=== PATIENT | male | born 1995 | race Caucasian/White ===

== ENCOUNTER 2020-12-13 17:14 | Emergency (ER) | payer SELFPAY ==
[2020-12-13 17:16] VITALS: BP 112/71; PULSE 66; RESP 18; TEMP 37.6; O2SAT 100; BMI 21.9
--- NOTE | 2020-12-13 18:32 | HMH.EDUTC ---
[facility] [place] Disposition Clinical Impression: Bilateral otitis media Qualifiers: Otitis media type: suppurative Chronicity: acute Recurrence: non-recurrent Spontaneous tympanic membrane rupture: without spontaneous rupture Qualified Code(s): H66.003 - Acute suppurative otitis media without spontaneous rupture of ear drum, bilateral Disposition: Home, Self-Care Condition on Discharge: Good Instructions: DI for Otitis Media (Middle Ear Infection)-Child Additional Instructions: You have been tested for COVID19. Please isolate as if you are positive until test results received. Prescriptions: Amoxicillin [Amoxicillin 875MG Tab] 875 mg PO Q12H #20 tab Transmission Status: Pending to [facility] predniSONE [Prednisone 20mg Tab] 20 mg PO BID 5 Days #10 tab Transmission Status: Pending to [facility] Referrals: Provider,Referral, MD [Primary Care Provider] - Time of Disposition: 19:15 Medical Decision Making - Saurav Inquiry Pt receiving controlled substance: No Vital Signs: 12/13/20 17:16 Temperature 99.6 F Temperature Source Oral Pulse Rate [Left Radial] 66 Respiratory Rate 18 Blood Pressure [Right Arm] 112/71 Blood Pressure Mean [Right Arm] 84 02 Sat by Pulse Oximetry 100 Oxygen Delivery Method Room Air - Lab Data Lab Results 12/13/20 18:37: Strep Scn Rapid Clinic Negative Orders (Tests/Meds): ORDERS Category Date Time Status Covid-19 Nasal PCR ([facility]) Routine Lab 12/13/20 18:30 Received Strep Screen Confirmation Stat Micro 12/13/20 18:[address] [facility] HPI - General Stated complaint: congestion,sore throat Time Seen by Provider: 12/13/20 18:32 - History of Present Illness Provider Complaint: Congestion, sore throat, bilateral ear pain X 3 days. No fever. is also ill. Onset (ago): day(s) (3) Relieving factors: none Exacerbating factors: none Associated symptoms: denies other symptoms Treatments prior to arrival: none - Related Data Previous Rx's Medication Instructions Recorded Amoxicillin [Amoxicillin 875MG 875 mg PO Q12H #20 tab 12/13/20 Tab] predniSONE [Prednisone 20mg 20 mg PO BID 5 Days #10 tab 12/13/20 Tab] Allergies Allergy/AdvReac Type Severity Reaction Status Date / Time No Known Allergies Allergy Unverified 04/26/17 14:13 [facility] History - Hepatitis A Screen Attestation statement:: This patient has been screened for Hepatitis A risk factors. I have reviewed the patient's past medical history: Yes ROS Obtained: Yes All systems reviewed & no additional complaints - Constitutional Constitutional: Reports body ache, Reports chills, Reports night sweats - ENT Ears, Nose, Mouth, and Throat: Reports otalgia, Reports sore throat Physical Exam - General General appearance: alert, in no apparent distress - Head Head exam: normocephalic - Eye Eye exam: Present: PERRL - ENT ENT exam: Present: normal oropharynx - Expanded ENT Exam TM/Canal exam: Bilateral TM: erythema, bulging Nose exam: Present: sinus tenderness Throat exam: Present: normal inspection - Neck Neck exam: Present: normal inspection - Respiratory Respiratory exam: Present: normal lung sounds bilaterally - Cardiovascular Cardiovascular exam: Present: regular rate, normal rhythm - Neurological Exam Neurological exam: Present: alert, oriented X3 - Psychiatric Psychiatric exam: Present: normal affect, normal mood - Skin Skin exam: Present: warm, dry
[2020-12-13 18:38] LABS: UTC Strep Screen (Rapid) Negative (Negative)
[2020-12-13 19:25] VITALS: BP 112/71; PULSE 66; RESP 18; TEMP 37.6; O2SAT 100
== END 2020-12-13 19:26 | disposition home or self-care (01) ==
PROVIDERS: Emergency Provider Physician Assistant
DX: H66.003 Acute suppurative otitis media without spontaneous rupture of ear drum, bilateral (principal); Z20.822 Contact with and (suspected) exposure to COVID-19
CPT/HCPCS: 87880; 99202; G0463; U0003

== ENCOUNTER 2023-08-25 02:03 | Emergency (ER) | payer BC, SELFPAY ==
[2023-08-25] VITALS (12 sets, daily range): BP systolic 136–185; BP diastolic 82–125; PULSE 91–130; RESP 18–24; TEMP 36.9–37; O2SAT 97–100; BMI 28.5
--- NOTE | 2023-08-25 02:05 | XR_ITS ---
PROCEDURE INFORMATION: Exam: XR Right Ankle Exam date and time: 08/25/2023 2:11 AM Age: 28 years old Clinical indication: Pain; Ankle; Right; Additional info: Ankle deformity, proximal tf pain TECHNIQUE: Imaging protocol: Radiologic exam of the right ankle. Views: 3 or more views. COMPARISON: No relevant prior studies available. FINDINGS: Bones/joints: Comminuted, displaced fracture distal fibular metadiaphysis. Comminuted, displaced intra-articular fracture distal tibia. Subluxation or dislocation of tibiotalar joint. Small joint effusion. Soft tissues: Soft tissue swelling. IMPRESSION: Distal tibial and fibular fractures.
--- NOTE | 2023-08-25 02:05 | XR_ITS ---
PROCEDURE INFORMATION: Exam: XR Right Foot Exam date and time: 08/25/2023 2:14 AM Age: 28 years old Clinical indication: Pain; Foot; Right; Additional info: Ankle deformity, proximal tf pain TECHNIQUE: Imaging protocol: Radiologic exam of the right foot. Views: 3 or more views. COMPARISON: No relevant prior studies available. FINDINGS: Bones/joints: Comminuted, displaced fracture distal fibular metadiaphysis. Comminuted, displaced intra-articular fracture distal tibia. Subluxation or dislocation of tibiotalar joint. Small joint effusion. Soft tissues: Soft tissue swelling. IMPRESSION: Distal tibial and fibular fractures.
--- NOTE | 2023-08-25 02:05 | XR_ITS ---
PROCEDURE INFORMATION: Exam: XR Right Tibia and Fibula Exam date and time: 08/25/2023 2:10 AM Age: 28 years old Clinical indication: Pain; Lower leg; Right; Additional info: Ankle deformity, proximal tf pain TECHNIQUE: Imaging protocol: Radiologic exam of the right tibia and fibula. Views: 2 views. COMPARISON: No relevant prior studies available. FINDINGS: Bones/joints: Nondisplaced fracture proximal fibular metadiaphysis. Comminuted, displaced fracture distal fibular metadiaphysis. Comminuted, displaced intra-articular fracture distal tibia. Subluxation or dislocation of tibiotalar joint. Soft tissues: Soft tissue swelling about ankle. IMPRESSION: Tibial and fibular fractures.
--- NOTE | 2023-08-25 02:05 | XR_ITS ---
PROCEDURE INFORMATION: Exam: XR Right Knee Exam date and time: 08/25/2023 2:17 AM Age: 28 years old Clinical indication: Pain; Knee; Right; Additional info: Ankle deformity, proximal tf pain TECHNIQUE: Imaging protocol: Radiologic exam of the right knee. Views: 3 views. COMPARISON: CR Foot R 08/25/2023 2:14 AM FINDINGS: Bones/joints: Nondisplaced oblique fracture proximal fibular metadiaphysis. No dislocation. No significant joint effusion. Soft tissues: Unremarkable. IMPRESSION: RIGHT proximal fibular fracture.
--- NOTE | 2023-08-25 02:12 | HMH.EDGENADL ---
Discharge Plan Disposition Patient Disposition: Xfer Short-Term Hosp Chief Complaint: Extremity Injury, Lower Prescriptions Prescriptions: No Action No Known Home Medications Referrals Follow up/Referrals: Provider,MD Helen [Primary Care Provider] - See instructions Clinical Impressions Clinical Impression: Closed pilon fracture of right tibia, Closed fracture of right fibula and tibia, Closed fracture of fibula, proximal, right Discharge ED Provider: Livan Aguero General Adult HPI General Chief complaint: Extremity Injury, Lower Stated complaint: Right Ankle Injury Time Seen by Provider: 08/25/23 02:05 History of Present Illness HPI narrative: 28-year-old male no relevant medical history presenting with right ankle injury. He jumped off the back of the [employer] about an hour and a half prior to arrival, twisted his ankle. States he has not been able to bear any weight since. Pain is primarily in his ankle in the front and middle, he felt an immediate pop. Pain does radiate up toward his knee. Can still move his toes and feel his foot. Has not taken anything for pain. Please note that above description of symptoms, in this electronic medical record under categorization of recalled from ER triage doctor by RN are reflective of an initial nursing assessment, however, is not reflective of my full history and physical exam that was personally taken and clarified. Consequentially, this preceding description of symptoms, which may include the patient's categorized chief complaint in the EMR, do not reflect my personal clinical impression, and the ultimate description of history of present illness and patient stated complaints should be deferred to this section of the note. Unless stated otherwise or congruent with this section of the note, additional signs, symptoms, or incongruence should be interpreted as inaccurate with my clinical impression. Related Data Home Medications Medication Instructions Recorded Confirmed No Known Home Medications 08/25/23 08/25/23 Allergies Allergy/AdvReac Type Severity Reaction Status Date / Time No Known Allergies Allergy Unverified 04/26/17 14:13 [facility] Disclaimer: The information contained in this section may have been updated after the patient was seen, as this information can be updated by other users. Medical History (Updated 08/25/23 @ 03:38 by Livan Aguero MD) No significant past medical history Surgical History (Updated 08/25/23 @ 02:13 by Marcelino Rowley RN) No history of previous surgery Family History (Updated 08/25/23 @ 02:13 by Marcelino Rowley RN) Other No significant family history Social History (Updated 08/25/23 @ 02:13 by Marcelino Rowley RN) Smoking Status: Current every day smoker alcohol intake: current current occupational status: employed Travel in the last 8 weeks: None ROS Obtained: Yes All systems reviewed & no additional complaints except as documented Physical Exam General General appearance: alert and in no apparent distress Head Head exam: atraumatic and normocephalic Eye Eye exam: Present normal appearance, PERRL and EOMI ENT ENT exam: Present mucous membranes moist Neck Neck exam: Present normal inspection, full ROM and trachea midline Respiratory Respiratory exam: Absent respiratory distress, wheezes, stridor, accessory muscle use or prolonged expiratory phase Cardiovascular Cardiovascular exam: Present normal rhythm Abdominal Exam Abdominal exam: Present soft; Absent distention, tenderness, guarding, rebound or rigidity Extremities Exam Extremities exam: Present edema and other (Tenderness, obvious deformity right ankle. Tenderness also proximal/lateral tib-fib. Neurologically intact distal to ankle injury, pulses are intact as well. Good capillary refill.) Neurological Exam Neurological exam: Present alert, oriented X3, CN II-XII intact and normal gait; Absent motor sensory deficit Skin Skin exam: Present warm and dry; Absent diaphoresis or erythema Medical Decision Making Medical Records Medical records reviewed: Yes I reviewed the patient's medical records. Saurav Inquiry Pt receiving controlled substance: No Saurav was queried for this patient: No Vital Signs: 08/25/23 02:03 Temperature 98.6 F Temperature Source Oral Pulse Rate [Left] 92 H Respiratory Rate 20 Blood Pressure [Right Arm] 136/82 Blood Pressure Mean [Right Arm] 100 Blood Pressure Source [Right Arm] Automatic Cuff Blood Pressure Position [Right Arm] Sitting 02 Sat by Pulse Oximetry 99 Oxygen Delivery Method Room Air Orders (Tests/Meds): ED MEDICATIONS Discontinued Medications Generic Name Dose Route Start Last Admin Trade Name Freq PRN Reason Stop Dose Admin Fentanyl Citrate 100 mcg 08/25/23 02:05 08/25/23 02:20 Fentanyl 250mcg/5ml Vial IV 08/25/23 02:06 Not Given ONCE ONE Fentanyl Citrate 100 mcg 08/25/23 02:13 08/25/23 02:13 Fentanyl 100mcg/2ml Vial IV 08/25/23 02:14 100 mcg ONCE ONE Administration Ketamine HCl 200 mg 08/25/23 02:30 Ketamine 500mg/10ml Vial IV 08/25/23 02:31 ONCE ONE ORDERS Category Date Time Status CT lower leg RT wo con Stat Cat Scan 08/25/23 02:37 Completed Ankle XR - Right 2 Views [XR ankle RT 2V] Stat Exams 08/25/23 03:16 Taken Ankle XR -Right minimum 3 Views [XR ankle RT min 3V] Exams 08/25/23 02:05 Completed Stat Fibula/tibia XR right 2 views [XR tibia fibula RT 2V] Exams 08/25/23 02:05 Completed Stat Foot XR right minimum 3 views [XR foot RT min 3V] Stat Exams 08/25/23 02:05 Completed Knee XR right 3 views [XR knee RT 3V] Stat Exams 08/25/23 02:05 Completed Medical Decision Narrative: 28-year-old male no relevant medical history presenting with right ankle injury. He jumped off the back of the [employer] about an hour and a half prior to arrival, twisted his ankle. States he has not been able to bear any weight since. Pain is primarily in his ankle in the front and middle, he felt an immediate pop. Pain does radiate up toward his knee. Can still move his toes and feel his foot. Has not taken anything for pain. History obtained with patient. On arrival, patient hemodynamically stable. He has an obvious right ankle deformity. Swelling, ecchymoses. Neurovascular intact, digits able to be flexed and extended. Range of motion of ankle obviously limited secondary to pain and swelling as well as deformity. Differential includes fracture, dislocation, combination fracture dislocation, sprain, among others. Patient given 100 mcg fentanyl for x-rays. X-rays independently interpreted and significant for severely comminuted pilon fracture with comminuted/displaced tibia and fibular fractures distally. He also has a proximal spiral fracture of the fibula on the right. Lucency on proximal tibia x-rays, so CT of ankle was extended to the knee. No intra-articular or proximal tibial fracture, but patient does have severely comminuted and subluxed/rotated tibiotalar joint. Patient given IV fluids, 100 mg IV ketamine for sedation. ASA 1, Mallampati 1. Patient sedated, reduced, and placed in posterior short leg splint with stirrups. [facility] was contacted after orthopedist here [facility] was contacted. We do not have means of fixing these fractures here at [facility], so patient was graciously excepted the [facility] under Dr. Knapp for transfer and operative fixation. Procedures Orthopedic Fracture Reduction Fracture #1: Time Out Performed: Yes Side: right Fracture Reduction Location: other (ankle) Analgesia: procedural sedation Technique: direct manipulation Post Reduction X-rays Demonstrate: acceptable reduction Post-reduction neuro exam: intact and no change Post-reduction vascular exam: intact and no change Splint Applied: Yes Patient Tolerated Procedure: well Orthopedic Joint Reduction Joint #1: Time Out Performed: Yes Side: right Joint Reduction Location: ankle Analgesia: procedural sedation Post-reduction neuro exam: intact and no change Post-reduction vascular: intact and no change Post Reduction X-Ray Obtained: Yes Post Reduction X-Ray Results: reduced (improved) Splint Applied: Yes Patient Tolerated Procedure: well Procedural Sedation A heart and lung assessment was performed on this patient at: 03:00 Mallampati Score:: Class I Indication: fracture/dislocation reduction ASA Class: I Preparation: monitoring analyst applied, pulse oximeter, capnometry used, supplemental O2 applied, suction/airway equipment at bedside and IV secured Fentanyl: IV Ketamine: IV Ketamine dose (mg): 100 Patient Tolerated Procedure: well Complications: none Interventions: oxygen applied Critical Care Critical Care Time Critical Care Time: Yes (ortho, CV) Attestation: On 08/25/23, the high probability of a clinically significant, sudden or life threatening deterioration of the following system(s) required my full and direct attention, intervention and personal management. The time I documented below is in addition to time spent performing reported procedures but includes the following listed in this critical care notation. Total Time Total Critical Care Time: 45
[2023-08-25] MEDS: FENTANYL 100MCG/2ML VIAL 100 MCG IV (02:13)
--- NOTE | 2023-08-25 02:37 | CT_ITS ---
PROCEDURE INFORMATION: Exam: CT Right Lower Extremity Without Contrast Exam date and time: 08/25/2023 2:47 AM Age: 28 years old Clinical indication: Pain; Ankle and lower leg; Right; Additional info: Right pilon, concern for R prox tibia spiral TECHNIQUE: Imaging protocol: CT of the right lower extremity without contrast was performed. Radiation optimization: All CT scans at this facility use at least one of these dose optimization techniques: automated exposure control; mA and/or kV adjustment per patient size (includes targeted exams where dose is matched to clinical indication); or iterative reconstruction. COMPARISON: CR XR ANKLE RT MIN 3V 08/25/2023 2:11 AM FINDINGS: Bones/joints: Nondisplaced fracture head/neck of fibula. Comminuted, displaced, distracted oblique fracture distal fibular metadiaphysis. Comminuted, displaced, distracted, intra-articular oblique fracture distal tibia involving medial malleolus, posterior malleolus, plafond. Rotation of distal tibia with respect to talus. Dislocation of principal tibial fracture fragment with respect to talus. Small joint effusion. Soft tissues: Soft tissue swelling/stranding about distal lower leg/ankle. IMPRESSION: Tibial and fibular fractures.
[2023-08-25] MEDS: KETAMINE 50MG/1ML SYRINGE 130 MG IV (03:09)
--- NOTE | 2023-08-25 03:16 | XR_ITS ---
PROCEDURE INFORMATION: Exam: XR Right Ankle Exam date and time: 08/25/2023 3:16 AM Age: 28 years old Clinical indication: Pain; Ankle; Right; Additional info: Post reduction TECHNIQUE: Imaging protocol: Radiologic exam of the right ankle. Views: 1 or 2 views. COMPARISON: CT LOWER LEG RT WO CON 08/25/2023 2:47 AM FINDINGS: Limitations: Imaged through splint, limiting evaluation of fine bony detail. Bones/joints: Comminuted, displaced fracture distal fibula. Comminuted, displaced intra-articular fracture distal tibia. No dislocation. Small joint effusion. Soft tissues: Soft tissue swelling. IMPRESSION: Distal tibial and fibular fractures.
--- NOTE | 2023-08-25 03:44 | PC.NURSE ---
Report called to INES Zapien at [facility]. EMS notified for ALS transfer
[2023-08-25] MEDS: LACTATED RINGERS 1000ML 1,000 ML 999 ML IV (04:04)
[2023-08-25] MEDS: HYDROMORPHONE 2MG/ML SYRINGE 1 MG IV (04:04)
== END 2023-08-25 04:15 | disposition short-term general hospital (02) ==
PROVIDERS: Emergency Provider Emergency Medicine
DX: S82.871A Displaced pilon fracture of right tibia, initial encounter for closed fracture (principal); S82.831A Other fracture of upper and lower end of right fibula, initial encounter for closed fracture; S82.201A Unspecified fracture of shaft of right tibia, initial encounter for closed fracture; F17.210 Nicotine dependence, cigarettes, uncomplicated; W17.89XA Other fall from one level to another, initial encounter
CPT/HCPCS: 99152; 99153; 73562; 73590; 73600; 73610; 73630; 73700; 96361; 96374; 96375; 96376; 99285